=== PATIENT | female | born 1980 | race Caucasian/White ===

== ENCOUNTER 2019-11-20 20:21 | Emergency (ER) | payer MEDICAID ==
[~2019-11-20] VITALS: Ht 167.6 cm; Wt 53.6 kg
[~2019-11-20 20:21] MED LIST: NO HOME MEDS
[2019-11-20 20:22] VITALS: BP 111/86
== END 2019-11-20 21:46 | disposition home or self-care (01) ==
LOC: ER 20:22
DX: R04.0 Epistaxis (principal); G89.29 Other chronic pain; F41.9 Anxiety disorder, unspecified; F12.90 Cannabis use, unspecified, uncomplicated; F15.90 Other stimulant use, unspecified, uncomplicated
CPT/HCPCS: 99283

== ENCOUNTER 2020-05-29 22:18 | Emergency (ER) | payer MEDICAID ==
[~2020-05-29] VITALS: Ht 167.6 cm; Wt 58.5 kg
[2020-05-29] MEDS ORDERED: sulfamethoxazole/trimethoprim DS (800/160mg) tablet PO ONE (23:30)
[2020-05-29] MEDS ORDERED: LIDOcaine 1% W/epiNEPHrine 1:100,000 20ml vial SQ ONE (23:30)
[2020-05-29] MEDS ORDERED: HYDROcodone/acetaminophen 10/325mg tab PO ONE (23:30)
--- NOTE | 2020-05-29 23:37 | NUR ---
Pt resting waiting for abcess to be drained. Pt medicated for pain and given antibiotics.
[2020-05-30] MEDS ORDERED: SULF1TAB49 PO (00:51)
[2020-05-30] MEDS ORDERED: DOXY100C77 PO (00:51)
[2020-05-30 01:10] VITALS: BP 100/60
== END 2020-05-30 01:14 | disposition home or self-care (01) ==
LOC: ER 22:18
DX: L02.415 Cutaneous abscess of right lower limb (principal); G89.29 Other chronic pain; F41.9 Anxiety disorder, unspecified; F32.9 Major depressive disorder, single episode, unspecified; F17.200 Nicotine dependence, unspecified, uncomplicated; F12.90 Cannabis use, unspecified, uncomplicated; F15.90 Other stimulant use, unspecified, uncomplicated; Z79.2 Long term (current) use of antibiotics
CPT/HCPCS: 10060; 99284

== ENCOUNTER 2021-01-22 20:22 | Emergency (ER) | payer MEDICAID ==
[~2021-01-22] VITALS: Ht 167.6 cm; Wt 58.2 kg
--- NOTE | 2021-01-22 21:06 | NUR ---
PT C/O LEFT DORSAL FOOT PAIN WITH REDNESS AND SWELLING 2D POST IVDU SITE; PT IS ABLE TO MOVE TOES AND MOVE FOOT ACTIVELY WITH PAIN PRESENT; PT IN NAD WITH VSS AT THIS TIME; NO OTHER C/O; AFEBRILE
[2021-01-22] MEDS ORDERED: sulfamethoxazole/trimethoprim DS (800/160mg) tablet PO ONE (21:25)
[2021-01-22] MEDS ORDERED: amox tr/potassium clavulanate 875/125mg TAB PO ONE (21:25)
[2021-01-22] MEDS ORDERED: ketorolac tromethamine 15mg/ml inj. IM ONE (21:25)
[2021-01-22] MEDS ORDERED: AMOX-422 PO (21:32)
[2021-01-22] MEDS ORDERED: SULF1TAB45 PO (21:32)
[2021-01-22 21:43] VITALS: BP 138/68
== END 2021-01-22 21:45 | disposition home or self-care (01) ==
LOC: ER 20:23
DX: L03.116 Cellulitis of left lower limb (principal); G89.29 Other chronic pain; F12.90 Cannabis use, unspecified, uncomplicated; F15.90 Other stimulant use, unspecified, uncomplicated; E07.9 Disorder of thyroid, unspecified; Z79.2 Long term (current) use of antibiotics; Z79.899 Other long term (current) drug therapy
CPT/HCPCS: 96372; 99283; J1885

== ENCOUNTER 2021-01-30 23:30 | Emergency (ER) | payer MEDICAID ==
[~2021-01-30] VITALS: Ht 167.6 cm; Wt 65.0 kg
[~2021-01-30 23:30] MED LIST changes: +AMOX-422 PO; +SULF1TAB45 PO
[2021-01-31] MEDS ORDERED: CLINDAMYCIN/D5W 900mg/50ml 50 ML IV STA (00:32)
[2021-01-31 01:15] LABS: BASOPHILS % (AUTO) 0.1 % (0-1); EOSINOPHILS % (AUTO) 0.3 % (0-6); HEMATOCRIT 34.5 % (35.0-45.0); HEMOGLOBIN 11.6 g/dl (12.0-16.0); LYMPHOCYTES # (AUTO) 2.1 X10'3 (1.1-4.8); LYMPHOCYTES % (AUTO) 15.4 % (21-51); MEAN CORPUSCULAR HEMOGLOBIN 30.6 PG (27.0-31.0); MEAN CORPUSCULAR HGB CONC 33.6 g/dL (33.0-36.5); MEAN PLATELET VOLUME 7.8 FL (7.4-10.4); MONOCYTES # (AUTO) 0.8 X10'3 (0-0.9); NEUTROPHILS # (AUTO) 10.4 X10'3 (1.8-7.7); NEUTROPHILS % (AUTO) 78.2 % (42-75); PLATELET COUNT 355 X10'3 (140-440); RED BLOOD COUNT 3.79 X10'6 (4.20-5.60); RED CELL DISTRIBUTION WIDTH 14.3 % (11.5-14.5); WHITE BLOOD COUNT 13.3 X10'3 (4.5-11.0)
[2021-01-31 01:21] LABS: ALBUMIN 3.2 G/DL (3.4-5.0); ANION GAP 6 (8-16); BLOOD UREA NITROGEN 16 MG/DL (7-18); BUN/CREATININE RATIO 21.6 (6.6-38.0); C-REACTIVE PROTEIN 7.84 MG/DL (0.0-0.5); CALCIUM 8.7 MG/DL (8.5-10.1); CHLORIDE 100 MMOL/L (99-107); CREATININE 0.74 MG/DL (0.40-0.90); GLUCOSE 90 MG/DL (70-104); POTASSIUM 4.2 MMOL/L (3.5-5.1); SODIUM 134 MMOL/L (135-145); TOTAL CARBON DIOXIDE 27.7 MMOL/L (24-32); eGFR 87 ML/MIN
[2021-01-31] MEDS ORDERED: potassium Cl 20 mEq SR tablet PO PRN ×2 (03:35)
[2021-01-31] MEDS ORDERED: mag hydrox/Alum hydrox/simeth 30ml oral suspension PO PRN (03:35)
[2021-01-31] MEDS ORDERED: potassium Cl 40MEQ/1/2NS 520ml 520 ML IV PRN ×2 (03:35)
[2021-01-31] MEDS ORDERED: acetaminophen 325mg tablet PO PRN (03:35)
[2021-01-31] MEDS ORDERED: ondansetron/PF 4mg/2ml inj IV PRN (03:35)
[2021-01-31] MEDS ORDERED: magnesium hydroxide 30ml (MOM) UD suspension PO PRN (03:35)
[2021-01-31] MEDS ORDERED: ketorolac trometh. 30mg/ml inj. IV ONE (03:40)
[2021-01-31 06:17] VITALS: BP 103/67
[2021-01-31] MEDS ORDERED: K and/or MAG REPLACEMENT MC SCH (08:00)
[2021-01-31] MEDS ORDERED: clindamycin 600mg/D5W 50ml 50 ML IV SCH (08:00)
[2021-01-31] MEDS ORDERED: docusate sod 100mg capsule PO SCH (08:00)
[2021-01-31] MEDS ORDERED: heparin, porcine 5000 units/ml vial SQ SCH (08:00)
--- NOTE | 2021-01-31 09:28 | NUR ---
CALLED TO GIVE REPORT, SPOKE WITH TAWNY WILL CALL ME BACK.
--- NOTE | 2021-01-31 11:05 | NUR ---
INFORMED DR. SALGUERO PT SIGNED OUT AMA.
[2021-01-31] MEDS ORDERED: lactobacillus rhamnosus 10,000 MMU CELLS/CAPSULE PO SCH (20:00)
== END 2021-01-31 11:18 | disposition left against medical advice (07) ==
LOC: ER 23:30 → ED HOLD 01-31 03:34 → UNDOADMIN 01-31 03:34 → ED HOLD 01-31 03:37 → UNDODISIN 01-31 11:13
DX: L03.116 Cellulitis of left lower limb (principal); F12.90 Cannabis use, unspecified, uncomplicated; L02.612 Cutaneous abscess of left foot; G89.29 Other chronic pain; M54.9 Dorsalgia, unspecified; F41.9 Anxiety disorder, unspecified; F32.9 Major depressive disorder, single episode, unspecified; Z53.29 Procedure and treatment not carried out because of patient's decision for other reasons; Z79.899 Other long term (current) drug therapy
CPT/HCPCS: 36415; 73630; 80048; 83605; 84145; 85025; 85651; 86140; 96365; 96375; 99285; J1885; 96374; G0378; J3490

== ENCOUNTER 2022-05-20 22:54 | Emergency (ER) | payer MEDICAID ==
[~2022-05-20] VITALS: Ht 167.6 cm; Wt 63.6 kg
[~2022-05-20 22:54] MED LIST changes: -AMOX-422 PO; -SULF1TAB45 PO
[2022-05-20 23:08] VITALS: BP 128/75
== END 2022-05-21 10:03 | disposition left against medical advice (07) ==
LOC: ER 22:55
DX: M79.604 Pain in right leg (principal); Z53.21 Procedure and treatment not carried out due to patient leaving prior to being seen by health care provider

== ENCOUNTER 2022-05-22 04:06 | Emergency (ER) | payer MEDICAID ==
[~2022-05-22] VITALS: Ht 160 cm; Wt 53.6 kg
[2022-05-22 04:44] VITALS: BP 111/76
== END 2022-05-22 07:12 | disposition left against medical advice (07) ==
LOC: ER 04:07
DX: M79.606 Pain in leg, unspecified (principal); Z53.21 Procedure and treatment not carried out due to patient leaving prior to being seen by health care provider